=== PATIENT | female | born 2000 | race Two or more races ===

== ENCOUNTER 2022-11-27 13:28 | Outpatient (CLI) | payer OTHER | END 2022-11-27 16:50 | disposition home or self-care (01) | LOC: PRENATAL 13:28 | PROVIDERS: ATTEND Obstetrics & Gynecology Maternal & Fetal Medicine | DX: O36.80X0 Pregnancy with inconclusive fetal viability, not applicable or unspecified (principal); Z36.9 Encounter for antenatal screening, unspecified; Z3A.12 12 weeks gestation of pregnancy ==

== ENCOUNTER 2023-01-16 11:24 | Outpatient (CLI) | payer OTHER | END 2023-01-16 16:24 | disposition home or self-care (01) | LOC: PRENATAL 11:24 | PROVIDERS: ATTEND Obstetrics & Gynecology Maternal & Fetal Medicine | DX: O35.3XX0 Maternal care for (suspected) damage to fetus from viral disease in mother, not applicable or unspecified (principal); Z14.8 Genetic carrier of other disease; O44.00 Complete placenta previa NOS or without hemorrhage, unspecified trimester; Z3A.19 19 weeks gestation of pregnancy ==

== ENCOUNTER → 2023-04-27 10:33 | Outpatient (CLI) | payer OTHER | END | disposition home or self-care (01) | LOC: PRENATAL 10:33 | PROVIDERS: ATTEND Obstetrics & Gynecology Maternal & Fetal Medicine | DX: O26.849 Uterine size-date discrepancy, unspecified trimester (principal); O36.8199 Decreased fetal movements, unspecified trimester, other fetus; O43.90 Unspecified placental disorder, unspecified trimester; Z3A.34 34 weeks gestation of pregnancy ==

== ENCOUNTER 2023-05-25 14:15 | Inpatient (IN) | payer OTHER ==
[~2023-05-25] VITALS: Ht 167.6 cm; Wt 83.5 kg
[2023-05-25 16:20] LABS: HEMATOCRIT 37.5 % (36.0-45.00); HEMOGLOBIN 12.3 g/dL (12.0-15.00); MEAN CELL VOLUME 72.9 fL (80.00-100.00); MEAN CORPUSCULAR HGB CONC 32.8 g/dl (32.0-36.0); PLATELET COUNT 268 K/uL (150-450); RED BLOOD COUNT 5.14 M/uL (4.00-6.00); RED CELL DISTRIBUTION WIDTH 15.4 % (11.5-14.5); URINE APPEARANCE Clear; URINE BILIRRUBIN Negative (NEGATIVE); URINE BLOOD Negative; URINE COLOR Yellow; URINE GLUCOSE Negative (NEGATIVE); URINE LEUKOCYTE Trace; URINE NITRATE Negative; URINE PROTEIN Trace (NEGATIVE); URINE UROBILINOGEN 0.2 E.U./dl
[2023-05-25 16:22] LABS: URINE EPITHELIAL CELLS 41.7 uL (0.0-38.8); URINE RBC 3.7 uL (0.0-20.8); URINE WBC 51.1 uL (0.0-23.2)
[2023-05-25 16:33] LABS: INR 0.94; PARTIAL THROMBOPLASTIN TIME 27.9 SECONDS (22.0-34.0); PROTHROMBIN TIME 9.9 SECONDS (9.0-11.5)
[2023-05-25 16:41] LABS: ALBUMIN 3.2 gm/dL (3.4-5.0); BILIRUBIN TOTAL 0.46 mg/dL (0.3-1.2); CALCIUM 8.9 mg/dL (8.5-10.1); CREATININE SERUM 0.49 mg/dL (0.55-1.02); GFR 152.66; GLOBULINA 3.8 G/DL (2.4-3.5); POTASSIUM 3.8 mEq/L (3.5-5.1)
[2023-06-04] MEDS ORDERED: VALTREX1000 MG (09:47)
[2023-06-04] MEDS ORDERED: PRENATABS RX T1 EACH PO (09:47)
[2023-06-04] MEDS ORDERED: VALTREX1000 MG PO (09:47)
[2023-06-04 11:18] LABS: HEMATOCRIT 37.4 % (36.0-45.00); HEMOGLOBIN 12.3 g/dL (12.0-15.00); MEAN CELL VOLUME 72.6 fL (80.00-100.00); MEAN CORPUSCULAR HEMOGLOBIN 23.9 pg (27.00-32.0); MEAN CORPUSCULAR HGB CONC 32.9 g/dl (32.0-36.0); PLATELET COUNT 295 K/uL (150-450); RED BLOOD COUNT 5.15 M/uL (4.00-6.00); RED CELL DISTRIBUTION WIDTH 15.9 % (11.5-14.5)
[2023-06-04 11:19] LABS: URINE APPEARANCE Cloudy; URINE BILIRRUBIN Negative (NEGATIVE); URINE BLOOD Negative; URINE COLOR Dark Yellow; URINE GLUCOSE Negative (NEGATIVE); URINE LEUKOCYTE Small; URINE NITRATE Negative; URINE PROTEIN 30 (NEGATIVE)
[2023-06-04 11:21] LABS: URINE BACTERIA 5543.9 uL (0.0-1933); URINE EPITHELIAL CELLS 103.2 uL (0.0-38.8); URINE RBC 7.4 uL (0.0-20.8); URINE WBC 165.2 uL (0.0-23.2)
[2023-06-04 11:47] LABS: INR 0.96; PARTIAL THROMBOPLASTIN TIME 28.8 SECONDS (22.0-34.0); PROTHROMBIN TIME 10.1 SECONDS (9.0-11.5)
[2023-06-04 22:07] LABS: HEMATOCRIT 36.8 % (36.0-45.00); MEAN CELL VOLUME 73.4 fL (80.00-100.00); MEAN CORPUSCULAR HGB CONC 32.7 g/dl (32.0-36.0); PLATELET COUNT 321 K/uL (150-450); RED BLOOD COUNT 5.02 M/uL (4.00-6.00)
== END 2023-06-06 17:06 | disposition home or self-care (01) | DRG 807 ==
LOC: LDR 06-04 10:27 → OB/GYN 06-04 10:27 → LDR 06-05 14:15 → EDBD 06-05 14:15 → OB/GYN 06-06 17:06
PROVIDERS: Student in an Organized Health Care Education/Training Program; ADMIT Obstetrics & Gynecology; ATTEND Obstetrics & Gynecology
PROC: 10E0XZZ Delivery of Products of Conception, External Approach (ICD-10-PCS; principal; 2023-06-04)
PROC: 0KQM0ZZ Repair Perineum Muscle, Open Approach (ICD-10-PCS; 2023-06-04)
PROC: 4A1HXCZ Monitoring of Products of Conception, Cardiac Rate, External Approach (ICD-10-PCS; 2023-06-04)
DX: O70.1 Second degree perineal laceration during delivery (principal); Z37.0 Single live birth; Z3A.39 39 weeks gestation of pregnancy; Z20.822 Contact with and (suspected) exposure to COVID-19